=== PATIENT | female | born 1955 | race African-American/Black ===

== ENCOUNTER 2016-05-02 04:34 | Emergency (ER) | payer OTHER ==
[~2016-05-02] VITALS: Ht 152.4 cm; Wt 108.5 kg
[~2016-05-02 04:34] MED LIST: 1-ME1LIQ PO; ALBU6.7H INH; BRIM0.155 OP; CILO50TA PO; DICL1CAP4 PO; GLUC250C5; LIPI10TA PO; RANI150 PO; ULTR50TA PO; VERA27.5 PO; WAL-10TA2 PO; ZINC30CA PO
[2016-05-02 04:40] VITALS: BP 126/79; PULSE 77; RESP 20; TEMP 98.4; O2SAT 96
[2016-05-02] MEDS ORDERED: MEDR4PAK PO (06:44)
[2016-05-02] MEDS ORDERED: ALBU6.7H INH (06:44)
[2016-05-02] MEDS ORDERED: BENZ100 PO (06:44)
--- NOTE | 2016-05-02 06:46 | PD ---
HPI Chief Complaint: Cold / Flu Symptoms Time Seen by Provider: 06:13 Travel History International Travel<30 days: No Contact w/Intl Traveler<30days: No Traveled to known affect area: No History of Present Illness HPI 60-year-old female with history of hypertension and dyslipidemia presents to the emergency department stating that over the past 2 months she's had ongoing respiratory illness that has not resolved. Patient now reports having back pain. Patient has gone through 2 courses of azithromycin without relief of symptoms. Patient has had sinus drainage and pressure. Patient had sputum productive of rust colored phlegm. Patient is not diabetic and does not currently have chest pain but chest does hurt with coughing. Patient does not report orthopnea or PND or peripheral edema. No personal history of clotting disorder. Patient does not take a blood thinning agent. No recent long distance travel protracted bedrest her surgical procedure. Patient has reportedly been referred to an orthopedist for her ongoing back pain and musculoskeletal pain but has not yet seen the orthopedist. No abdominal pain no nausea no vomiting no diarrhea no constipation no dysuria frequency urgency or hematuria. Overall pain is 6/10 in intensity. Patient is unable to identify exacerbating or alleviating factors. Patient has been treated in the past for asthma and bronchitis and continues to smoke cigarettes. PFSH Past Medical History Narrative Medical Hypertension dyslipidemia GERD asthma arthritis peripheral vascular disease peripheral neuropathy tobacco use nursing notes reviewed Arthritis: Yes Asthma: Yes Cardiovascular Problems: Yes (BILATERAL EDEMA TO ANKLES IN THE PAST ) High Cholesterol: Yes Diminished Hearing: No GERD: Yes Hypertension: Yes Medical other: Yes (PVD) Neurologic: Yes (neuropathy right hi and leg) Respiratory: Yes (ASTHMA/BRONCHITIS;c-pap) Immunizations Current: No Influenza Vaccination: No ?: Not Menopausal: Yes : 0 Past Surgical History Thoracic Surgery: No Other Surgery: Yes (leg surgery) Social History Alcohol Use: No Tobacco Use: Yes (1 ppd) Substance Use: No (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 ) Allergies-Medications (Allergen,Severity, Reaction): Coded Allergies: No Known Allergies (Verified , 05/02/16) Reported Meds & Prescriptions Reported Meds & Active Scripts Active Proventil Hfa 6.7 GM Inh (Albuterol Sulfate) 90 Mcg/Act Aer 2 Puff INH Q4-6H PRN Tessalon Perles (Benzonatate) 100 Mg Cap 100 Mg PO TID PRN Medrol Dosepak (Methylprednisolone) 4 Mg Dspk 4 Mg PO DIRECTED Per Pharmacist direction Reported Zinc (Zinc Gluconate) 30 Mg Tab 1 Tab PO DAILY Iron (Ferrous Sulfate) 325 Mg Tab 325 Mg PO DAILY Take Vitamin D3 (Cholecalciferol) 1,000 Unit Chew 1,000 Units CHEW DAILY Atorvastatin (Atorvastatin Calcium) 20 Mg Tab 20 Mg PO HS Tramadol (Tramadol HCl) 50 Mg Tab 50 Mg PO DAILY PRN Cilostazol 100 Mg Tab 100 Mg PO DAILY Allergy Nasal [place] 24 Ho (Fluticasone Propionate (Nasal)) 50 Mcg/Act Spr 1 [place] NA DAILY PRN Brimonidine Opth Drops (Brimonidine Tartrate) 0.2% Soln 1 Drop RIGHT EYE HS Furosemide 20 Mg Tab 20 Mg PO EVERY 2 DAYS PRN Gabapentin 600 Mg Tab 600 Mg PO HS Ranitidine (Ranitidine HCl) 300 Mg Tab 300 Mg PO DAILY Amlodipine-Benazepril 5-10 Mg Cap 1 Cap PO DAILY Review of Systems Except as stated in HPI: all other systems reviewed are Neg General / Constitutional: No: Fever, Chills HENT: Positive: Congestion, Other (sinus pressure and drainage) Cardiovascular: No: Chest Pain or Discomfort, Palpitations, Diaphoresis, Syncope, Dyspnea on exertion, Edema Respiratory: Positive: Cough, Shortness of Breath, No: Wheezing, Orthopnea, Hemoptysis, Pleuritic Pain Gastrointestinal: No: Nausea, Vomiting, Abdominal Pain Genitourinary: No: Dysuria, Flank Pain Musculoskeletal: No: Myalgias, Arthralgias Skin: No Rash Neurologic: No: Weakness Psychiatric: No: Anxiety Endocrine: No: Heat Intolerance Hematologic/Lymphatic: No: Easy Bruising Physical Exam Narrative GENERAL: Well-developed well-nourished female in no acute distress no respiratory distress SKIN: Warm and dry. HEAD: Normocephalic. EYES: No scleral icterus. No injection or drainage. ENT: Mucous membranes moist airway is patent sinuses tender to percussion over the maxillary sinuses right greater than left NECK: Supple, trachea midline. No JVD or lymphadenopathy. CARDIOVASCULAR: Regular rate and rhythm without murmurs, gallops, or rubs. RESPIRATORY: Breath sounds equal bilaterally. No accessory muscle use. GASTROINTESTINAL: Abdomen soft, non-tender, nondistended. MUSCULOSKELETAL: No cyanosis, or edema. BACK: Nontender without obvious deformity. No CVA tenderness. Data Data Last Documented VS Vital Signs Date Time Temp Pulse Resp B/P Pulse Ox O2 Delivery O2 Flow Rate FiO2 05/02/16 05:55 76 20 96 Room Air 05/02/16 04:40 98.4 126/79 Orders Chest, Pa & Lat (05/02/16 ) Influenzae A/B Antigen (05/02/16 06:13) Electrocardiogram (05/02/16 ) Troponin I (05/02/16 06:13) B-Type Natriuretic Peptide (05/02/16 06:13) Basic Metabolic Panel (Bmp) (05/02/16 06:13) Complete Blood Count With Diff (05/02/16 06:13) Labs Laboratory Tests Test 05/02/16 06:30 Sodium Level 143 MEQ/L Potassium Level 4.3 MEQ/L Chloride Level 108 MEQ/L Carbon Dioxide Level 26.4 MEQ/L Anion Gap 9 MEQ/L Blood Urea Nitrogen 10 MG/DL Creatinine 0.58 MG/DL Estimat Glomerular Filtration 129 ML/MIN Rate Random Glucose 101 MG/DL Calcium Level 8.7 MG/DL MDM Medical Decision Making Medical Screen Exam Complete: Yes Emergency Medical Condition: Yes Medical Record Reviewed: Yes (cardiac catheterization without significant coronary vessel disease 01/26/11) Interpretation(s) EKG normal sinus rhythm rate [address] elevation or injury pattern change noted artifact is present at baseline Differential Diagnosis Influenza, bronchitis, pneumonia, sinusitis, viral syndrome, reactive airways disease, ACS, CHF Narrative Course Patient presents with 2 months of respiratory illness after 2 courses of antibiotic without symptom relief reportedly we'll obtain chest x-ray in view of history of tobacco use hypertension dyslipidemia and age over 50 we'll obtain EKG troponin as well as will collected specimens for [facility] metabolic panel BNP CBC and influenza antigen care signed over to Dr George Diagnosis Primary Impression: Bronchitis Referrals: Primary Care Physician call for appointment Patient Instructions: General Instructions Med/Other Pt SpecificInfo: Prescription(s) given Scripts Albuterol 6.7 GM Inh (Proventil Hfa 6.7 GM Inh)90 Mcg/Act Aer2 Puff INH Q4-6H PRN (SHORTNESS OF BREATH) #1 INHALER Ref 0 Prov:Tram Quinonez MD 3/18/17 Benzonatate (Tessalon Perles)100 Mg [id number] Mg PO TID PRN (COUGH) #10 CAP Ref 0 Prov:Tram Quinonez MD 05/02/16 Methylprednisolone Dosepak (Medrol Dosepak)4 Mg Dspk4 Mg PO DIRECTED #1 DSPK Ref 0 Per Pharmacist direction Prov:Tram Quinonez MD 05/02/16 Tram Quinonez MD May 02, 2016 06:46 Tram Quinonze MD May 02, 2016 06:46
[2016-05-02 06:54] LABS: AUTOMATED NEUTROPHIL # 5.6 TH/MM3 (1.8-7.7); BASOPHIL # 0.1 TH/MM3 (0-0.2); BASOPHIL % 0.7 % (0.0-2.0); EOSINOPHIL # 0.3 TH/MM3 (0-0.4); EOSINOPHIL % 3.6 % (0.0-4.0); HEMATOCRIT 36.4 % (35.0-46.0); LYMPH % 27.6 % (9.0-44.0); LYMPHOCYTE # 2.4 TH/MM3 (1.0-4.8); MEAN CORPUSCULAR HEMOGLOBIN 22.6 PG (27.0-34.0); MEAN CORPUSCULAR HGB CONC 32.3 % (32.0-36.0); MONO % 5.7 % (0.0-8.0); NEUT % 62.4 % (16.0-70.0); PLATELET COUNT 371 TH/MM3 (150-450); RED CELL DISTRIBUTION WIDTH 15.9 % (11.6-17.2); WHITE BLOOD COUNT 8.9 TH/MM3 (4.0-11.0)
[2016-05-02 07:02] LABS: CHLORIDE 108 MEQ/L (98-107); POTASSIUM 4.3 MEQ/L (3.5-5.1); SODIUM (NA) 143 MEQ/L (136-145)
[2016-05-02 07:05] VITALS: BP 112/71; PULSE 61; RESP 16; TEMP 97.6; O2SAT 100
[2016-05-02 07:05] LABS: ANION GAP 9 MEQ/L (5-15); BICARBONATE 26.4 MEQ/L (21.0-32.0); BLOOD UREA NITROGEN 10 MG/DL (7-18)
[2016-05-02] MEDS ORDERED: BRIM0.2S4 RIGHT EYE (07:06)
[2016-05-02] MEDS ORDERED: GABA600T PO (07:06)
[2016-05-02] MEDS ORDERED: FLUT1SPR22 (07:06)
[2016-05-02] MEDS ORDERED: FERR1TAB36 PO (07:06)
[2016-05-02] MEDS ORDERED: RANI300T PO (07:06)
[2016-05-02] MEDS ORDERED: ZINC30TA2 PO (07:06)
[2016-05-02] MEDS ORDERED: AMLO5CAP PO (07:06)
[2016-05-02] MEDS ORDERED: CILO100T PO (07:06)
[2016-05-02] MEDS ORDERED: ATOR20TA15 PO (07:06)
[2016-05-02] MEDS ORDERED: FURO20TA PO (07:06)
[2016-05-02] MEDS ORDERED: TRAM50TA PO (07:06)
[2016-05-02] MEDS ORDERED: CHOL100025 CHEW (07:06)
[2016-05-02 07:08] LABS: GLOMERULAR FILTRATION RATE 129 ML/MIN (>89)
[2016-05-02 07:14] LABS: HEMO FLAGS AUTO DIFF
[2016-05-02 07:31] LABS: SCAN/DIFF AUTO DIFF CONFIRMED
--- NOTE | 2016-05-02 07:31 | RADHPO ---
EXAM DATE/TIME: 05/02/2016 06:31 [facility] COMPARISON: CHEST PA & LAT, April 29, 2013, 5:06. INDICATIONS : Cough. MEDICAL HISTORY : None. SURGICAL HISTORY : None. ENCOUNTER: Initial ACUITY: 2 weeks PAIN SCORE: 0/10 LOCATION: Bilateral chest FINDINGS: PA and lateral views of the chest demonstrate the lungs to be symmetrically aerated without evidence of mass, infiltrate or effusion. The cardiomediastinal contours are unremarkable. Osseous structure s are intact. CONCLUSION: No acute disease. No significant change has occurred. Jerry Cardoza MD on May 02, 2016 at 7:29 Board Certified Radiologist. This report was verified electronically.
--- NOTE | 2016-05-02 08:05 | PD ---
Physical Exam Date Seen by Provider: May 02, 2016 Narrative Care was assumed from Dr. Quinonez at 7:00 pending her x-ray report and labs. Data Data Last Documented VS Vital Signs Date Time Temp Pulse Resp B/P Pulse Ox O2 Delivery O2 Flow Rate FiO2 05/02/16 07:05 97.6 61 16 112/71 100 Room Air Orders Chest, Pa & Lat (05/02/16 ) Influenzae A/B Antigen (05/02/16 06:13) Electrocardiogram (05/02/16 ) Troponin I (05/02/16 06:13) B-Type Natriuretic Peptide (05/02/16 06:13) Basic Metabolic Panel (Bmp) (05/02/16 06:13) Complete Blood Count With Diff (05/02/16 06:13) Labs Laboratory Tests Test 05/02/16 06:30 White Blood Count 8.9 TH/MM3 Red Blood Count 5.20 MIL/MM3 Hemoglobin 11.7 GM/DL Hematocrit 36.4 % Mean Corpuscular Volume 70.0 FL Mean Corpuscular Hemoglobin 22.6 PG Mean Corpuscular Hemoglobin 32.3 % Concent Red Cell Distribution Width 15.9 % Platelet Count 371 TH/MM3 Mean Platelet Volume 8.4 FL Neutrophils (%) (Auto) 62.4 % Lymphocytes (%) (Auto) 27.6 % Monocytes (%) (Auto) 5.7 % Eosinophils (%) (Auto) 3.6 % Basophils (%) (Auto) 0.7 % Neutrophils # (Auto) 5.6 TH/MM3 Lymphocytes # (Auto) 2.4 TH/MM3 Monocytes # (Auto) 0.5 TH/MM3 Eosinophils # (Auto) 0.3 TH/MM3 Basophils # (Auto) 0.1 TH/MM3 CBC Comment AUTO DIFF Differential Comment AUTO DIFF CONFIRMED Sodium Level 143 MEQ/L Potassium Level 4.3 MEQ/L Chloride Level 108 MEQ/L Carbon Dioxide Level 26.4 MEQ/L Anion Gap 9 MEQ/L Blood Urea Nitrogen 10 MG/DL Creatinine 0.58 MG/DL Estimat Glomerular Filtration 129 ML/MIN Rate Random Glucose 101 MG/DL Calcium Level 8.7 MG/DL Troponin I LESS THAN 0.02 NG/ML MDM Supervised Visit with [facility]: No Narrative Course Last Impressions Chest X-Ray 05/02/16 0000 Signed Impressions: Service Date/Time: Monday, May 02, 2016 06:31 - CONCLUSION: No acute disease. No significant change has occurred. Jerry Cardoza MD CBC & BMP Diagram 05/02/16 06:30 Flu screen is negative. Cardiac enzymes are negative. The analyzer that the BNP is down. However, her chest x-ray shows no evidence of CHF. Diagnosis Primary Impression: Bronchitis Referrals: Primary Care Physician call for appointment Patient Instructions: General Instructions Scripts Albuterol 6.7 GM Inh (Proventil Hfa 6.7 GM Inh)90 Mcg/Act Aer2 Puff INH Q4-6H PRN (SHORTNESS OF BREATH) #1 INHALER Ref 0 Prov:Tram Quinonez MD 05/02/16 Benzonatate (Tessalon Perles)100 Mg [id number] Mg PO TID PRN (COUGH) #10 CAP Ref 0 Prov:Tram Quinonez MD 05/02/16 Methylprednisolone Dosepak (Medrol Dosepak)4 Mg Dspk4 Mg PO DIRECTED #1 DSPK Ref 0 Per Pharmacist direction Prov:Tram Quinonez MD 05/02/16 Disposition: 01 DISCHARGE HOME Condition: Stable Anastasia Price MD May 02, 2016 08:05
--- NOTE | 2016-05-02 08:19 | EKG ---
Date Performed: 05/02/2016 Time Performed: 06:40:16 PTAGE: 60 years EKG: Baseline artifact is present. Sinus rhythm . Inferior ST changes are nonspecific Borderline ECG No significant change from prior electrocardiogr am. PREVIOUS TRACING : 04/19/2015 09.55 DOCTOR: Soy Witt Interpretating Date/Time 05/02/2016 08:18:04
== END 2016-05-02 08:23 | disposition home or self-care (01) ==
LOC: PHED 04:34
DX: I10 Essential (primary) hypertension (principal); J40 Bronchitis, not specified as acute or chronic; R94.31 Abnormal electrocardiogram [ECG] [EKG]; K21.9 Gastro-esophageal reflux disease without esophagitis; J45.909 Unspecified asthma, uncomplicated; I73.9 Peripheral vascular disease, unspecified; E78.00 Pure hypercholesterolemia, unspecified; F17.210 Nicotine dependence, cigarettes, uncomplicated
CPT/HCPCS: 71020; 80048; 83880; 84484; 85025; 87804; 93005; 99283

== ENCOUNTER 2016-06-19 09:56 | Emergency (ER) | payer OTHER ==
[~2016-06-19] VITALS: Ht 152.4 cm; Wt 114.0 kg
[~2016-06-19 09:56] MED LIST changes: -1-ME1LIQ PO; +AMLO5CAP PO; +ATOR20TA15 PO; +BENZ100 PO; -BRIM0.155 OP; +BRIM0.2S4 RIGHT EYE; +CHOL100025 CHEW; +CILO100T PO; -CILO50TA PO; -DICL1CAP4 PO; +FERR1TAB36 PO; +FLUT1SPR22; +FURO20TA PO; +GABA600T PO; -GLUC250C5; -LIPI10TA PO; +MEDR4PAK PO; -RANI150 PO; +RANI300T PO; +TRAM50TA PO; -ULTR50TA PO; -VERA27.5 PO; -WAL-10TA2 PO; -ZINC30CA PO; +ZINC30TA2 PO
[2016-06-19 09:59] VITALS: BP 151/96; PULSE 81; RESP 16; TEMP 98.2; O2SAT 99
--- NOTE | 2016-06-19 10:22 | PD ---
HPI Chief Complaint: Back/ Neck Pain or Injury Time Seen by Provider: 10:18 Travel History International Travel<30 days: No Contact w/Intl Traveler<30days: No Traveled to known affect area: No History of Present Illness HPI 60-year-old female with history of obstructive sleep apnea, hypertension, presents to the ER today because she states that 2 weeks ago she rolled over and felt a pain and spasm in her right neck going down her right shoulder area. She was seen by her primary care physician and had been given Tylenol Flexeril. However, she states that it is not subsiding and it was worse last night. She states is a now a 9 out of 10 and worse with movements of her right shoulder and neck. She denies any fevers, shortness of breath, chest pains, or other symptoms she states that she has had coughing symptoms which were treated as bronchitis by her primary care physician 2 weeks ago. Modifying Factors: None Associated Signs & Symptoms: Right neck and shoulder pains Risk Factors: None PFSH Past Medical History Arthritis: Yes Asthma: Yes Cardiovascular Problems: Yes (BILATERAL EDEMA TO ANKLES IN THE PAST ) High Cholesterol: Yes Diminished Hearing: No GERD: Yes Hypertension: Yes Neurologic: Yes (neuropathy right hi and leg) Respiratory: Yes (ASTHMA/BRONCHITIS;c-pap) Immunizations Current: No Menopausal: Yes : 0 Past Surgical History Thoracic Surgery: No Other Surgery: Yes (leg surgery) Social History Alcohol Use: No Tobacco Use: Yes (1 ppd) Substance Use: No (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 ) Allergies-Medications (Allergen,Severity, Reaction): Coded Allergies: No Known Allergies (Verified , 06/19/16) Reported Meds & Prescriptions Reported Meds & Active Scripts Active Proventil Hfa 6.7 GM Inh (Albuterol Sulfate) 90 Mcg/Act Aer 2 Puff INH Q4-6H PRN Reported Vitamin B12 (Cyanocobalamin) Unknown Strength Tab Unknown Dose PO DAILY Melatonin 5 Mg Tab 3 Mg PO HS PRN Zinc (Zinc Gluconate) 30 Mg Tab 1 Tab PO DAILY Iron (Ferrous Sulfate) 325 Mg Tab 325 Mg PO DAILY Take Vitamin D3 (Cholecalciferol) 1,000 Unit Chew 1,000 Units CHEW DAILY Atorvastatin (Atorvastatin Calcium) 20 Mg Tab 20 Mg PO HS Tramadol (Tramadol HCl) 50 Mg Tab 50 Mg PO DAILY PRN Cilostazol 100 Mg Tab 100 Mg PO DAILY Allergy Nasal [place] 24 Ho (Fluticasone Propionate (Nasal)) 50 Mcg/Act Spr 1 [place] NA DAILY PRN Brimonidine Opth Drops (Brimonidine Tartrate) 0.2% Soln 1 Drop RIGHT EYE HS Furosemide 20 Mg Tab 20 Mg PO EVERY 2 DAYS PRN Gabapentin 600 Mg Tab 600 Mg PO HS Ranitidine (Ranitidine HCl) 300 Mg Tab 300 Mg PO DAILY Amlodipine-Benazepril 5-10 Mg Cap 1 Cap PO DAILY Review of Systems Except as stated in HPI: all other systems reviewed are Neg Physical Exam Narrative GENERAL: Well-developed middle age -[place] female patient currently in mild distress. Awake and oriented 3. SKIN: Focused skin assessment warm/dry. HEAD: Atraumatic. Normocephalic. EYES: Pupils equal and round. No scleral icterus. No injection or drainage. ENT: No nasal bleeding or discharge. Mucous membranes pink and moist. NECK: Trachea midline. No JVD. There is mild tenderness to palpation of the right paraspinal areas going down to the right posterior shoulder area with no deformities or point tenderness. CARDIOVASCULAR: Regular rate and rhythm. No murmur appreciated. RESPIRATORY: No accessory muscle use. Clear to auscultation. Breath sounds equal bilaterally. GASTROINTESTINAL: Abdomen soft, non-tender, nondistended. Hepatic and splenic margins not palpable. MUSCULOSKELETAL: No obvious deformities. No clubbing. No cyanosis. No edema. NEUROLOGICAL: Awake and alert. No obvious cranial nerve deficits. Motor grossly within normal limits. Normal speech. PSYCHIATRIC: Appropriate mood and affect; insight and judgment normal. Data Data Last Documented VS Vital Signs Date Time Temp Pulse Resp B/P Pulse Ox O2 Delivery O2 Flow Rate FiO2 06/19/16 10:24 16 06/19/16 09:59 98.2 81 151/96 99 Orders Chest, Single Ap (06/19/16 10:18) Spine, Cervical - Ltd (Ap&Lat) (06/19/16 10:18) MDM Medical Decision Making Medical Screen Exam Complete: Yes Emergency Medical Condition: Yes Medical Record Reviewed: Yes Differential Diagnosis Shoulder strain versus muscle spasms versus cervical radiculopathy versus pneumonia Narrative Course X-rays did not show any signs of acute injuries. At this point, I suspect that she may have an underlying shoulder strain and my plan would be to give her symptomatic relief or pain with follow-up to primary care physician. Return for any worsening in symptoms as needed. The plan has discussed with her and she states understanding. Diagnosis Primary Impression: Right shoulder strain Med/Other Pt SpecificInfo: Prescription(s) given Scripts Hydrocodone-Acetaminophen (Lortab)5-325 Mg Tab1-2 Tab PO Q6H PRN (PAIN) #15 TAB Ref 0 Prov:Mary Schwartz MD 06/19/16 Disposition: 01 DISCHARGE HOME Condition: Stable Mary Schwartz MD June 19, 2016 10:22
[2016-06-19] MEDS ORDERED: MELA5TAB15 PO (10:37)
[2016-06-19] MEDS ORDERED: VITA100T15 PO (10:37)
--- NOTE | 2016-06-19 11:05 | RADHPO ---
EXAM DATE/TIME: 06/19/2016 10:47 [facility] COMPARISON: No previous studies available for comparison. INDICATIONS : Patient states pulled muscle in neck and is complains of pain. MEDICAL HISTORY : None. SURGICAL HISTORY : None. ENCOUNTER: Initial ACUITY: 1 week PAIN SCORE: 9/10 LOCATION: Right cervical FINDINGS: Alignment is satisfactory. There is disc space narrowing at multiple levels with prominent predominan tly ventral endplate osteophytes at all levels below C2-3. There is no evidence of fracture or destru ctive change. No abnormal prevertebral swelling is present. CONCLUSION: Degenerative changes. No acute bony findings Barrett Dodge MD on June 19, 2016 at 11:02 Board Certified Radiologist. This report was verified electronically.
--- NOTE | 2016-06-19 11:05 | RADHPO ---
EXAM DATE/TIME: 06/19/2016 10:38 [facility] COMPARISON: CHEST PA & LAT, May 02, 2016, 6:31. CHEST SINGLE AP, April 19, 2015, 10:42. INDICATIONS : Cough. MEDICAL HISTORY : None. SURGICAL HISTORY : None. ENCOUNTER: Initial ACUITY: 1 day PAIN SCORE: 0/10 LOCATION: Bilateral chest FINDINGS: Portable AP view of the chest demonstrates a normal-sized cardiac silhouette. No effusion, consolidat ion, or pneumothorax is visualized. The bones and soft tissues demonstrate no acute abnormality. Ther e are degenerative changes of the thoracic spine. CONCLUSION: Stable chest x-ray. No acute finding is identified. Barrett Dozier MD on June 19, 2016 at 11:02 Board Certified Radiologist. This report was verified electronically.
[2016-06-19] MEDS ORDERED: HYDR-3533 PO (11:09)
== END 2016-06-19 11:55 | disposition home or self-care (01) ==
LOC: PHED 09:56
DX: S46.911A Strain of unspecified muscle, fascia and tendon at shoulder and upper arm level, right arm, initial encounter (principal); I10 Essential (primary) hypertension; J45.909 Unspecified asthma, uncomplicated; E78.00 Pure hypercholesterolemia, unspecified; K21.9 Gastro-esophageal reflux disease without esophagitis; F17.210 Nicotine dependence, cigarettes, uncomplicated
CPT/HCPCS: 71010; 72040; 99283

== ENCOUNTER 2017-01-01 12:46 | Emergency (ER) | payer OTHER ==
[~2017-01-01] VITALS: Ht 152.4 cm; Wt 118.0 kg
[~2017-01-01 12:46] MED LIST changes: -BENZ100 PO; +CYAN100 PO; +HYDR-3533 PO; -MEDR4PAK PO; +MELA5 PO
[2017-01-01 12:50] VITALS: BP 157/72; PULSE 85; RESP 16; TEMP 97.4; O2SAT 97
[2017-01-01] MEDS ORDERED: ZINC30TA PO (13:08)
[2017-01-01] MEDS ORDERED: FERR325T18 PO (13:08)
[2017-01-01] MEDS ORDERED: RANI300T PO (13:08)
[2017-01-01] MEDS ORDERED: GABA600T PO (13:08)
[2017-01-01] MEDS ORDERED: SODIUM CHLOR 0.9% 1000 ML INJ 1,000 ML IV SCH (13:09)
[2017-01-01] MEDS ORDERED: VARE1 PO (13:11)
--- NOTE | 2017-01-01 13:14 | PD ---
HPI Chief Complaint: Abdominal Pain Time Seen by Provider: 12:55 Travel History International Travel<30 days: No Contact w/Intl Traveler<30days: No Traveled to known affect area: No History of Present Illness HPI The patient is a 61-year-old female who presents to the emergency department for 2 days of epigastric to right upper quadrant abdominal pain associated with nausea. The patient's pain started 2 days ago, is intermittent, sharp, worse with eating, and there are no true alleviating factors. She denies any diarrhea or vomiting, however, does note a relationship with food. She denies any previous abdominal surgeries. She denies any CC fever, chills, or sweats. She denies any associated dysuria, frequency, or urgency. Symptoms are moderate, worse with eating, and no alleviating factors. The patient called her primary physician's office, Dr. Xavi Lopez, and they referred her to [facility]. However, she is unable to get an appointment for the next week. PFSH Past Medical History Hx Anticoagulant Therapy: Yes Anemia: Yes Arthritis: Yes Asthma: Yes Cardiovascular Problems: Yes (HTN, CHOL) High Cholesterol: Yes Diabetes: No Diminished Hearing: No GERD: Yes Hypertension: Yes Neurologic: Yes (neuropathy right hi and leg) Respiratory: Yes (ASTHMA/BRONCHITIS;c-pap) Immunizations Current: No ?: Not Menopausal: Yes : 0 Past Surgical History Eye Surgery: Yes (cataract left eye?) Joint Replacement: Yes (left knee) Thoracic Surgery: No Other Surgery: Yes (leg surgery) Social History Alcohol Use: No (no, revcovery hx of ETOH abuse) Tobacco Use: Yes (quit 2 months ago smoked 1 ppd) Substance Use: No (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 ) Allergies-Medications (Allergen,Severity, Reaction): Coded Allergies: No Known Allergies (Verified Adverse Reaction, Unknown, 01/01/17) Reported Meds & Prescriptions Reported Meds & Active Scripts Active Proventil Hfa 6.7 GM Inh (Albuterol Sulfate) 90 Mcg/Act Aer 2 Puff INH Q4-6H PRN Reported Chantix (Varenicline) 1 Mg Tab 1 Mg PO DAILY Zinc Gluconate 30 Mg Tab 30 Mg PO DAILY Ferrous Sulfate 325 Mg (65 Mg Iron) Tablet 325 Mg PO DAILY Ranitidine (Ranitidine HCl) 300 Mg Tab 300 Mg PO BID Gabapentin 600 Mg Tab 600 Mg PO BID Vitamin B12 (Cyanocobalamin) Unknown Strength Tab Unknown Dose PO DAILY Melatonin 5 Mg Tab 3 Mg PO HS PRN Vitamin D3 (Cholecalciferol) 1,000 Unit Chew 1,000 Units CHEW DAILY Atorvastatin (Atorvastatin Calcium) 20 Mg Tab 20 Mg PO HS Tramadol (Tramadol HCl) 50 Mg Tab 50 Mg PO DAILY PRN Cilostazol 100 Mg Tab 100 Mg PO DAILY Brimonidine Opth Drops (Brimonidine Tartrate) 0.2% Soln 1 Drop RIGHT EYE HS Furosemide 20 Mg Tab 20 Mg PO EVERY 2 DAYS PRN Amlodipine-Benazepril 5-10 Mg Cap 1 Cap PO DAILY Review of Systems Except as stated in HPI: all other systems reviewed are Neg General / Constitutional: No: Fever Cardiovascular: No: Chest Pain or Discomfort Respiratory: No: Shortness of Breath Gastrointestinal: Positive: Nausea, Abdominal Pain, No: Vomiting, Diarrhea Genitourinary: No: Dysuria Musculoskeletal: Positive: Other (history of gout) Physical Exam Narrative GENERAL: Awake, alert, pleasant 61-year-old female who appears her stated age and is in no acute respiratory distress. SKIN: Focused skin assessment warm/dry. HEAD: Atraumatic. Normocephalic. EYES: No injection or drainage. ENT: No nasal bleeding or discharge. Mucous membranes pink and moist. NECK: Trachea midline. No JVD. CARDIOVASCULAR: Regular rate and rhythm. No murmur appreciated. RESPIRATORY: No accessory muscle use. Clear to auscultation. Breath sounds equal bilaterally. GASTROINTESTINAL: Abdomen soft, obese, tender palpation right upper quadrant. MUSCULOSKELETAL: No obvious deformities. No clubbing. No cyanosis. No edema. NEUROLOGICAL: Awake and alert. No obvious cranial nerve deficits. Motor grossly within normal limits. Normal speech. PSYCHIATRIC: Appropriate mood and affect; insight and judgment normal. Data Data Last Documented VS Vital Signs Date Time Temp Pulse Resp B/P (MAP) Pulse Ox O2 Delivery O2 Flow Rate FiO2 01/01/17 14:55 76 112/56 (74) 97 01/01/17 12:50 97.4 16 Orders Orders Complete Blood Count With Diff (01/01/17 13:09) Comprehensive Metabolic Panel (01/01/17 13:09) Lipase (01/01/17 13:09) Urinalysis - C+S If Indicated (01/01/17 13:09) Us Abdomen Gallbladder (01/01/17 ) Iv Access Insert/Monitor (01/01/17 13:09) Ecg Monitoring (01/01/17 13:09) Oximetry (01/01/17 13:09) Morphine Inj (Morphine Inj) (01/01/17 13:15) Ondansetron Inj (Zofran Inj) (01/01/17 13:15) Sodium Chlor 0.9% 1000 Ml Inj (Ns 1000 M (01/01/17 13:09) Sodium Chloride 0.9% Flush (Ns Flush) (01/01/17 13:15) Electrocardiogram (01/01/17 13:09) Labs Laboratory Tests Test 01/01/17 13:00 01/01/17 13:34 01/01/17 15:30 Urine Collection Type CLEAN CATCH Urine Color YELLOW Urine Turbidity CLEAR Urine pH 6.0 Urine Specific [place] 1.018 Urine Protein NEG mg/dL Urine Glucose (UA) NEG mg/dL Urine Ketones NEG mg/dL Urine Occult Blood NEG Urine Nitrite NEG Urine Bilirubin NEG Urine Leukocyte Esterase NEG Urine RBC 0-3 /hpf Urine Squamous Epithelial Cells 0-5 /hpf Microscopic Urinalysis Comment CULT NOT INDICATED Urine Collection Time 13:00 White Blood Count 11.1 TH/MM3 Red Blood Count 5.10 MIL/MM3 Hemoglobin 11.0 GM/DL Hematocrit 36.0 % Mean Corpuscular Volume 70.5 FL Mean Corpuscular Hemoglobin 21.6 PG Mean Corpuscular Hemoglobin Concent 30.7 % Red Cell Distribution Width 16.2 % Platelet Count 394 TH/MM3 Mean Platelet Volume 10.3 FL Neutrophils (%) (Auto) 65.4 % Lymphocytes (%) (Auto) 23.1 % Monocytes (%) (Auto) 5.6 % Eosinophils (%) (Auto) 5.5 % Basophils (%) (Auto) 0.4 % Neutrophils # (Auto) 7.3 TH/MM3 Lymphocytes # (Auto) 2.6 TH/MM3 Monocytes # (Auto) 0.6 TH/MM3 Eosinophils # (Auto) 0.6 TH/MM3 Basophils # (Auto) 0.0 TH/MM3 CBC Comment AUTO DIFF Differential Comment AUTO DIFF CONFIRMED Target Cells 2+ Blood Urea Nitrogen 11 MG/DL Creatinine 0.55 MG/DL Random Glucose 102 MG/DL Total Protein 7.7 GM/DL Albumin 3.4 GM/DL Calcium Level 8.8 MG/DL Alkaline Phosphatase 146 U/L Aspartate Amino Transf (AST/SGOT) 16 U/L Alanine Aminotransferase (ALT/SGPT) 22 U/L Total Bilirubin 0.3 MG/DL Sodium Level 139 MEQ/L Potassium Level 4.4 MEQ/L Chloride Level 109 MEQ/L Carbon Dioxide Level 19.3 MEQ/L Anion Gap 11 MEQ/L Estimat Glomerular Filtration Rate 137 ML/MIN Lipase 91 U/L [facility] Medical Decision Making Medical Screen Exam Complete: Yes Emergency Medical Condition: Yes Medical Record Reviewed: Yes Interpretation(s) EKG reveals normal sinus rhythm with a rate 81. No ischemic changes or ectopy noted. Ultrasound the gallbladder reveals unremarkable gallbladder with no evidence of cholelithiasis. The liver is mildly prominent with findings characteristic of fatty infiltration. The gallbladder contains no stones, demonstrates no wall thickening or pericholecystic fluid. Laboratory Tests Test 01/01/17 13:00 01/01/17 13:34 01/01/17 15:30 Urine Collection Type CLEAN CATCH Urine Color YELLOW Urine Turbidity CLEAR Urine pH 6.0 Urine Specific [place] 1.018 Urine Protein NEG mg/dL Urine Glucose (UA) NEG mg/dL Urine Ketones NEG mg/dL Urine Occult Blood NEG Urine Nitrite NEG Urine Bilirubin NEG Urine Leukocyte Esterase NEG Urine RBC 0-3 /hpf Urine Squamous Epithelial Cells 0-5 /hpf Microscopic Urinalysis Comment CULT NOT INDICATED Urine Collection Time 13:00 White Blood Count 11.1 TH/MM3 Red Blood Count 5.10 MIL/MM3 Hemoglobin 11.0 GM/DL Hematocrit 36.0 % Mean Corpuscular Volume 70.5 FL Mean Corpuscular Hemoglobin 21.6 PG Mean Corpuscular Hemoglobin Concent 30.7 % Red Cell Distribution Width 16.2 % Platelet Count 394 TH/MM3 Mean Platelet Volume 10.3 FL Neutrophils (%) (Auto) 65.4 % Lymphocytes (%) (Auto) 23.1 % Monocytes (%) (Auto) 5.6 % Eosinophils (%) (Auto) 5.5 % Basophils (%) (Auto) 0.4 % Neutrophils # (Auto) 7.3 TH/MM3 Lymphocytes # (Auto) 2.6 TH/MM3 Monocytes # (Auto) 0.6 TH/MM3 Eosinophils # (Auto) 0.6 TH/MM3 Basophils # (Auto) 0.0 TH/MM3 CBC Comment AUTO DIFF Differential Comment AUTO DIFF CONFIRMED Target Cells 2+ Blood Urea Nitrogen 11 MG/DL Creatinine 0.55 MG/DL Random Glucose 102 MG/DL Total Protein 7.7 GM/DL Albumin 3.4 GM/DL Calcium Level 8.8 MG/DL Alkaline Phosphatase 146 U/L Aspartate Amino Transf (AST/SGOT) 16 U/L Alanine Aminotransferase (ALT/SGPT) 22 U/L Total Bilirubin 0.3 MG/DL Sodium Level 139 MEQ/L Potassium Level 4.4 MEQ/L Chloride Level 109 MEQ/L Carbon Dioxide Level 19.3 MEQ/L Anion Gap 11 MEQ/L Estimat Glomerular Filtration Rate 137 ML/MIN Lipase 91 U/L Last Impressions Gall Bladder Ultrasound 01/01/17 0000 Signed Impressions: Service Date/Time: Sunday, January 01, 2017 13:57 - CONCLUSION: 1. Unremarkable gallbladder with no evidence of cholelithiasis. 2. The liver is mildly prominent with findings characteristic of fatty infiltration. Isael Pierce MD Differential Diagnosis Differential diagnosis includes cholecystitis, symptomatic cholelithiasis, biliary colic, pancreatitis, pyelonephritis, nephrolithiasis, GERD, gastritis, hiatal hernia. Narrative Course IV was established, labs are drawn and sent, and the patient was placed on cardiac telemetry monitoring and continuous pulse oximetry monitoring. The patient was administered morphine, Zofran, and IV fluids. Ultrasound of the right upper quadrant was ordered to evaluate for possible cholecystitis. The patient's white count is mildly elevated 11.1. LFTs and lipase are unremarkable. UA is negative. Ultrasound is negative for acute cholecystitis. The patient's pain is epigastric, may be related to gastritis or possibly transverse diverticulitis, however, patient is afebrile. The patient be discharged home on Bentyl and Zofran, is advised to follow-up with a primary physician. Diagnosis Primary Impression: Epigastric abdominal pain Patient Instructions: General Instructions Additional Instructions: Medications as directed. Follow-up with your primary physician. Return if symptoms worsen or progress. Clear liquid diet and advance as tolerated. Med/Other Pt SpecificInfo: Prescription(s) given Scripts Ondansetron Odt (Zofran Odt) 4 Mg Tab 4 MG SL Q6HR Y for Nausea/Vomiting, #7 TAB 0 Refills Prov: Jesse Davis MD 01/01/17 Dicyclomine (Bentyl) 10 Mg Cap 10 MG PO QID for Bowel Management, #15 CAP 0 Refills Prov: Jesse Davis MD 01/01/17 Disposition: 01 DISCHARGE HOME Condition: Stable Jesse Davis MD Jan 01, 2017 13:14
[2017-01-01] MEDS ORDERED: MORPHINE SULFATE 4 MG/ML INJ IV PUSH ONE (13:15)
[2017-01-01] MEDS ORDERED: SODIUM CHLORIDE 0.9% FLUSH 10 ML FLUSH IV FLUSH PRN (13:15)
[2017-01-01] MEDS ORDERED: ONDANSETRON HCL 4 MG/2 ML VIAL IVP ONE (13:15)
[2017-01-01 14:02] VITALS: O2SAT 97
--- NOTE | 2017-01-01 14:24 | RADRPT ---
EXAM DATE/TIME: 01/01/2017 13:57 [facility] COMPARISON: No previous studies available for comparison. EXTERNAL COMPARISON : [facility], US ABDOMEN, COMPLETE September 10, 2015. [facility], US ABDOMEN, COMPLETE 2014. [facility], CT ABDOMEN & PELVIS W/O CONTRAST October 11, 2012. [facility], US COMPLETE ABDOMEN March 18, 2006. INDICATIONS : Right upper quadrant pain. MEDICAL HISTORY : Hypertension. Hypercholesterolemia. Gastroesophageal reflux disease. ETOH abuse. Substance use, crack . Anticoagulant therapy. Asthma. Arthritis. SURGICAL HISTORY : Cataract removal. Orthopedic surgery: Left ankle/foot and right leg. Left total knee replacement. ENCOUNTER: Subsequent ACUITY: 2 days PAIN SCORE: 6/10 LOCATION: Right upper quadrant MEASUREMENTS: LIVER: 16.5 cm length COMMON DUCT: 3 mm RIGHT KIDNEY: 11.9 x 5.1 x 4.1 cm FINDINGS: LIVER: The liver is mildly prominent with mild increased echogenicity. There is no focal mass or ductal dila tation. The patient was tender in the right upper quadrant. COMMON DUCT: No intraluminal mass or stone visualized. GALLBLADDER: Contains no stones, demonstrates no wall thickening or pericholecystic fluid. PANCREAS: The visualized portions are within normal limits. RIGHT KIDNEY: No evidence of hydronephrosis, stone, or mass. CONCLUSION: 1. Unremarkable gallbladder with no evidence of cholelithiasis. 2. The liver is mildly prominent with findings characteristic of fatty infiltration. Isael Pierce MD on January 01, 2017 at 14:17 Board Certified Radiologist. This report was verified electronically.
[2017-01-01 14:26] LABS: BLOOD, URINE NEG (NEG); GLUCOSE,URINE NEG (NEG); KETONE, URINE NEG (NEG); NITRITE,URINE NEG (NEG)
[2017-01-01 14:26] LABS: AUTOMATED NEUTROPHIL # 7.3 TH/MM3 (1.8-7.7); BASOPHIL % 0.4 % (0.0-2.0); EOSINOPHIL # 0.6 TH/MM3 (0-0.4); EOSINOPHIL % 5.5 % (0.0-4.0); LYMPH % 23.1 % (9.0-44.0); LYMPHOCYTE # 2.6 TH/MM3 (1.0-4.8); MEAN CELL VOLUME 70.5 FL (80.0-100.0); MEAN CORPUSCULAR HEMOGLOBIN 21.6 PG (27.0-34.0); MEAN CORPUSCULAR HGB CONC 30.7 % (32.0-36.0); MONO % 5.6 % (0.0-8.0); NEUT % 65.4 % (16.0-70.0); PLATELET COUNT 394 TH/MM3 (150-450); RED CELL DISTRIBUTION WIDTH 16.2 % (11.6-17.2); WHITE BLOOD COUNT 11.1 TH/MM3 (4.0-11.0)
[2017-01-01 14:29] LABS: HEMO FLAGS AUTO DIFF
[2017-01-01 14:32] LABS: COMMENT (UR) CULT NOT INDICATED; CULTURE IF INDICATED CULT NOT INDICATED; METHOD OF COLLECTION CLEAN CATCH; RBC, URINE 0-3 /hpf (0-3); SQUAMOUS EPITHELIAL CELL URINE 0-5 /hpf (0-5); URINE COLOR YELLOW (YELLW/STRAW)
[2017-01-01 14:55] VITALS: BP 112/56; PULSE 76; O2SAT 97
[2017-01-01 15:08] LABS: TARGET CELLS 2+ (NORMAL)
[2017-01-01 15:09] LABS: SCAN/DIFF AUTO DIFF CONFIRMED
[2017-01-01 16:04] LABS: CHLORIDE 109 MEQ/L (98-107); POTASSIUM 4.4 MEQ/L (3.5-5.1); SODIUM (NA) 139 MEQ/L (136-145)
[2017-01-01 16:08] LABS: ANION GAP 11 MEQ/L (5-15); BICARBONATE 19.3 MEQ/L (21.0-32.0); BLOOD UREA NITROGEN 11 MG/DL (7-18)
[2017-01-01 16:11] LABS: ALT (GPT) 22 U/L (10-53); AST (GOT) 16 U/L (15-37); GLOMERULAR FILTRATION RATE 137 ML/MIN (>89)
[2017-01-01 16:13] LABS: TOTAL BILIRUBIN ADULT 0.3 MG/DL (0.2-1.0)
[2017-01-01 16:14] LABS: ALKALINE PHOSPHATASE 146 U/L (45-117)
[2017-01-01] MEDS ORDERED: ZOFR4TAB3 SL (16:18)
[2017-01-01] MEDS ORDERED: DICY10 PO (16:18)
--- NOTE | 2017-01-02 09:19 | EKG ---
Date Performed: 01/01/2017 Time Performed: 13:19:11 PTAGE: 61 years EKG: Sinus rhythm Compared to prior tracing no significant change NORMAL ECG PREVIOUS TRACING : 05/02/2016 06.40 DOCTOR: Chucho Reyes Interpretating Date/Time 01/02/2017 09:17:53
== END 2017-01-01 16:35 | disposition home or self-care (01) ==
LOC: PHED 12:46
DX: R10.13 Epigastric pain (principal)
CPT/HCPCS: 76705; 80053; 81001; 83690; 85025; 93005; 96374; 96375; 99285; J2270; J2405; J7030